=== PATIENT | male | born 1980 | race Caucasian/White ===

== ENCOUNTER 2024-10-22 22:12 | Emergency (ER) | payer OTHER ==
[~2024-10-22] VITALS: Ht 172.7 cm; Wt 77.1 kg
[2024-10-22 22:38] VITALS: TEMP 98.3
[2024-10-22] MEDS ORDERED: NAPROXEN 250 MG TABLET ONE (22:54)
[2024-10-22] MEDS: NAPROXEN 250 MG TABLET PO ONE (22:56)
[2024-10-22 23:20] LABS: PLATELET COUNT (AUTO) 195 K/uL (150-450); RED BLOOD CELL COUNT(AUTO) 5.21 MIL/uL (4.5-6.0); RED CELL DISTRIBUTION WIDTH 13.7 % (11.5-15.0); WHITE BLOOD COUNT (AUTO) 7.9 K/uL (4.3-11.0)
[2024-10-22 23:28] LABS: CALCIUM, SERUM 9.2 mg/dL (8.5-10.1); CREATININE 1.3 mg/dL (0.6-1.3); SODIUM SERUM 142 mmol/L (136-145); UREA NITROGEN, BLOOD 22 mg/dL (7-18)
[2024-10-22 23:30] LABS: APPEARANCE,URINE CLEAR (CLEAR); BLOOD, URINE NEGATIVE Ery/uL (NEGATIVE); LEUKOCYTE ESTERASE ,URINE NEGATIVE (NEGATIVE); NITRITE, URINE NEGATIVE (NEGATIVE); UGLUCOSE NEGATIVE (NEGATIVE)
[2024-10-22 23:35] LABS: ASPARTATE AMINOTRANSFERASE 25 U/L (15-37); TOTAL PROTEIN, SERUM 7.3 g/dL (6.4-8.2)
[2024-10-22] MEDS ORDERED: CYCL10TA9 PO (23:55)
[2024-10-22] MEDS ORDERED: ACET-3102 PO (23:57)
[2024-10-22] MEDS ORDERED: LIDO1ADH71 TD (23:57)
[2024-10-22] MEDS ORDERED: IBUP-1955 PO (23:57)
[2024-10-23 00:13] VITALS: BP 124/70; O2SAT 98
== END 2024-10-23 00:13 | disposition home or self-care (01) ==
LOC: ER 22:17
DX: R10.9 Unspecified abdominal pain (principal)
CPT/HCPCS: 36415; 80053-TC; 83735-TC; 85025-TC; 86140-TC